=== PATIENT | male | born 1985 | race African-American/Black ===

== ENCOUNTER 2017-06-16 00:31 | Emergency (ER) | payer MEDICAID ==
[~2017-06-16] VITALS: Ht 193 cm; Wt 106.6 kg
[2017-06-16 00:41] VITALS: BP 150/95
== END 2017-06-16 04:08 | disposition home or self-care (01) ==
LOC: ER 00:33
DX: R51 Headache (principal); G43.909 Migraine, unspecified, not intractable, without status migrainosus
CPT/HCPCS: 70450